=== PATIENT | female | born 1985 | race Caucasian/White ===

== ENCOUNTER 2019-02-19 19:44 | Emergency (ER) | payer MEDICAID ==
[~2019-02-19] VITALS: Ht 175.3 cm; Wt 109.0 kg
[~2019-02-19 19:44] MED LIST: BUPR150F3 PO; ESTR0.3T PO; HYDR-3653 PO; NORT10CA; SERT100T PO; TIZA4CAP PO
[2019-02-19 19:52] VITALS: BP 138/88
--- NOTE | 2019-02-19 20:02 | NUR ---
XRAY IN THE ROOM NOW.
--- NOTE | 2019-02-19 20:18 | NUR ---
FIRST CONTACT WITH PT. PT CAUGHT LEFT FOOT IN HOLE AT HOME AT 1:30PM TODAY. PT SAYS SHE ROLLED ANKLE AND CAN NOT PUT PRESSURE ON IT. PT'S AOX4. RESPS EVEN AND UNLABORED. PA AT BEDSIDE TO EXPLAIN POC AT THIS TIME.
[2019-02-19] MEDS ORDERED: ACETAMINOPHEN 500 MG TABLET ONE (20:30)
[2019-02-19] MEDS ORDERED: ACETAMINOPHEN 500 MG TABLET PO ONE (20:30)
--- NOTE | 2019-02-19 20:34 | NUR ---
Assist RN: patient medicated for pain. ice pack applied.
--- NOTE | 2019-02-19 21:04 | NUR ---
PT GIVEN DC INSTRUCTIONS AND SCRIPT. PT EDUCATED REGARDING DC MEDICATION. PT AMB TO DC WITH CRUTCHES. NO ACUTE DISTRESS AT DC.
== END 2019-02-19 21:05 | disposition home or self-care (01) ==
LOC: ED 20:45
DX: S93.491A Sprain of other ligament of right ankle, initial encounter (principal); G89.29 Other chronic pain; Z90.49 Acquired absence of other specified parts of digestive tract; Z90.710 Acquired absence of both cervix and uterus; X50.1XXA Overexertion from prolonged static or awkward postures, initial encounter; Y93.89 Activity, other specified; Y92.009 Unspecified place in unspecified non-institutional (private) residence as the place of occurrence of the external cause; Y99.8 Other external cause status
CPT/HCPCS: 99283